=== PATIENT | male | born 1935 | race Caucasian/White ===

== ENCOUNTER → 2021-01-06 | Outpatient (CLI) | payer MEDICARE, BC ==
[~2021-01-06] MED LIST: IOHEXOL 180 MG/ML 10 ML VIAL. IJ ONE; LIDOCAINE 1% Multi-Dose 20 ML VIAL. INJ ONE
--- NOTE | 2021-01-06 12:03 | RAD ---
EXAM: Fluoroscopic guided lumbar puncture for lumbar myelography. HISTORY: 85-year-old male with back pain and lower extremity pain. TECHNIQUE: The risks of the procedure were discussed with the patient and written and verbal consent was obtained. A timeout was performed. The patient was premedicated for the exam due to a reported co ntrast allergy. The patient was placed in a prone position on the fluoroscopic table and fluoroscopic imaging was performed. Based on review of a prior lumbar spine CT and the presence of Baastrup's disease, the L2-L3 level wa s selected for needle entry. This site was prepped and draped in sterile fashion. 1% lidocaine solut ion without epinephrine was infiltrated into the skin and deep soft tissues along the expected needle track. A spinal needle could not be advanced beyond the posterior elements into the thecal sac despi te multiple attempts. Using the same sterile technique and local anesthesia, attempts were made at th e L3-L4 and L4-L5 levels. The L5-S1 level was not attempted due to prominent epidural fat effacing th e thecal sac at this level on the prior CT. 3 fluoroscopic images were obtained. The total fluoroscop y time was 4.2 minutes. Given inability to obtain access to the thecal sac at multiple levels, the my elogram portion of the exam was performed. Sterile bandages were placed at the needle entry sites and the patient was discharged in stable condition. IMPRESSION: Unsuccessful attempted fluoroscopic guided lumbar puncture for lumbar myelography. If the re is a contraindication to MRI assessment, a fluoroscopic guided cervical puncture can be attempted if deemed clinically indicated. This information was communicated to Rosario Pulido, the nurse for the referring surgeon, at 1000 on 01/06/2021. Electronically signed by: Theresa Marie MD (01/06/2021 12:01 PM) [id number]
== END | disposition home or self-care (01) ==
LOC: RAD 08:29
PROVIDERS: ATTEND Neurological Surgery
DX: M54.16 Radiculopathy, lumbar region (principal); Z88.0 Allergy status to penicillin; Z88.8 Allergy status to other drugs, medicaments and biological substances
CPT/HCPCS: 62304; J3490

== ENCOUNTER → 2021-02-18 | Outpatient (CLI) | payer MEDICARE, BC ==
[~2021-02-18] MED LIST changes: +ACET500T68 PO; +APIX5TAB PO; +BUSP15TA PO; +CHOL5000 PO; +CLON-77 PO; +CLONAZEPAM1 MG PO; +CYCL1DRO EACHEYE; +FLUT16SP NS; -IOHEXOL 180 MG/ML 10 ML VIAL. IJ ONE; +LEVO-101 PO; -LIDOCAINE 1% Multi-Dose 20 ML VIAL. INJ ONE; +MECL-75 PO; +METO-239 PO; +NITR0.4T24 SL; +PANT40TA77 PO; +PHEN300C4 PO; +PROP15DR EACHEYE; +SIMV20TA18 PO; +TAMS0.4C97 PO; +TRAM50TA PO; +VIT1CAPS12 PO; +XOPENEX0.63 MG/3 IH
[2021-02-18 13:14] LABS: BASO % 1 % (0-3); EOS # 0.1 x10^3/uL (0.0-0.7); EOS % 2 % (0-3); HEMATOCRIT 38.8 % (39.0-53.0); HEMOGLOBIN 13.4 g/dL (13.0-17.5); LYMPH # 2.3 x10^3/uL (1.0-4.8); LYMPH % 42 % (24-48); MEAN CORPUSCULAR HEMOGLOBIN 37 pg (25-35); MEAN CORPUSCULAR HGB CONC 35 g/dL (31-37); MEAN CORPUSCULAR VOLUME 106 fL (79-100); MONO # 0.5 x10^3/uL (0.0-1.1); MONO % 10 % (0-9); NEUT # 2.4 x10^3/uL (1.8-7.7); NEUT % 45 % (31-73); PLATELET COUNT 158 x10^3/uL (140-400); RED BLOOD COUNT 3.67 x10^6/uL (4.30-5.70); RED CELL DISTRIBUTION WIDTH 13.4 % (11.5-14.5); WHITE BLOOD COUNT 5.4 x10^3/uL (4.0-11.0)
[2021-02-18 13:31] LABS: ALBUMIN 3.3 g/dL (3.4-5.0); CALCIUM 8.9 mg/dL (8.5-10.1); CREATININE 1.1 mg/dL (0.7-1.3); GFR 63.8; POTASSIUM 4.5 mmol/L (3.5-5.1); TOTAL BILIRUBIN 0.4 mg/dL (0.2-1.0); TOTAL PROTEIN 6.7 g/dL (6.4-8.2)
== END ==
LOC: SURGPAT 12:40
PROVIDERS: ATTEND Neurological Surgery
DX: Z01.818 Encounter for other preprocedural examination (principal); M48.062 Spinal stenosis, lumbar region with neurogenic claudication
CPT/HCPCS: 36415; 80053; 85025; 87641

== ENCOUNTER → 2021-02-24 | Day surgery (SDC) | payer MEDICARE, BC ==
[2021-02-18 13:17] VITALS: BP 121/57
[~2021-02-24] VITALS: Ht 177.8 cm; Wt 91.0 kg
[~2021-02-24] MED LIST changes: +BUPIVACAINE-EPI 0.5%-1:200000 MPF 30 ML VIAL. ONE; +DEXAMETHASONE SOD PHOS 4 MG/ML VIAL ONE; +DOCU-109 PO; +GELATIN SPONGE SIZE 100. ONE; +GLYCOPYRROLATE 1 MG/5 ML VIAL. ONE; +HYDR-2761 PO; +HYDROmorphone 2 MG/ML VIAL IVP PRN; +IV RINGERS,LACTATED 1000ML 1,000 ML IV SCH; +KETOROLAC 60 MG/2 ML VIAL. ONE; +LIDOCAINE 1% PF 5 ML VIAL. ONE; +MORPHINE SULFATE 2 MG/ML INJ. IVP PRN; +NEOSTIGMINE 10 MG/10 ML VIAL. ONE; +ONDANSETRON PF 4 MG/2 ML VIAL. ONE; +PHENYLEPHRINE in 0.9% NACL PF 1 MG/10 ML SYRINGE. IV ONE; +PROCHLORPERAZINE 10 MG/2 ML VIAL. IVP PRN; +PROPOFOL 0 ML IV ONE; +PROPOFOL 10 MG/ML (20ML) VIAL. IV ONE; +REMIFENTANIL 1 MG VIAL. IV ONE; +ROCURONIUM 50 MG/5 ML VIAL. ONE; +SUCCINYLCHOLINE 200 MG/10 ML VIAL. ONE; +THROMBIN TOPICAL 20,000 UNIT SPRAY.SYRN KIT TP ONE; +ceFAZolin SODIUM 1 GM in IV NORMAL SALINE 1000ML BAG 1,000 ML IRR ONE; +ePHEDrine PF IN SALINE 50 MG/10 ML SYRINGE. IV ONE; +fentaNYL PF VIAL 100 MCG/2 ML VIAL IVP PRN; +fentaNYL PF VIAL 100 MCG/2 ML VIAL ONE
[2021-02-24 07:29] VITALS: BP 141/63
[2021-02-24 07:30] VITALS: BP 141/63
--- NOTE | 2021-02-24 08:00 | NUR ---
Surgery cancelled for 02/24. Chart sent to medical records for coding.
--- NOTE | 2021-02-24 09:40 | PREOP HP ---
DATE OF SERVICE: 02/25/2021 PREOP HISTORY AND PHYSICAL HISTORY OF PRESENT ILLNESS: The patient is a pleasant 85-year-old man who is having problems with low back pain along with bilateral buttock pain, right greater than left. There is also right posterior thigh and leg pain. He has had problems with urinary incontinence for years. He does have a known T12 fracture that occurred in 08/2020. He says his pain is 10/10 at its worse. Walking and standing markedly increase his pain. Lying down helps. He is taking tramadol and Tylenol. He had epidural steroid injections 10 years past for this problem without improvement. We did make arrangements for a lumbar myelogram; however, he was not able to have this. Because of his pacemaker, he cannot have a lumbar MRI scan. CURRENT MEDICATIONS: Flomax, Combivent, vitamin D3, BuSpar, clonazepam, meclizine, pantoprazole, thyroid, Eliquis, phenytoin, metoprolol, Tylenol, tramadol. PAST MEDICAL HISTORY: Angina, arthritis, seizures, headaches, COPD, [place], hypertension, thyroid disease, GERD. PAST SURGICAL HISTORY: Appendectomy, cholecystectomy, cardiac stents, cardiac pacemaker. FAMILY HISTORY: Aneurysm, cancer, seizures, heart disease, hypertension, headaches, spine problems. SOCIAL HISTORY: Retired, , does not smoke. Does not drink alcohol. ALLERGIES: PENICILLIN AND GEMIFLOXACIN. REVIEW OF SYSTEMS: A 12-point review of systems was performed and is noncontributory except that mentioned above PHYSICAL EXAMINATION: GENERAL: Alert, pleasant, in no acute distress. HEENT: Head is normocephalic, atraumatic. SKIN: Warm and dry. MUSCULOSKELETAL: Lumbar paraspinal muscle bulk is normal, restricted range of motion of the lumbar spine, [id number] tenderness of the lower lumbar spine with palpation, normal range of motion of the lower extremities bilaterally. EXTREMITIES: No clubbing, cyanosis or edema. NEUROLOGIC: Alert and oriented x 3. Strength is 5/5 in the lower extremities. Sensory was intact to light touch in the lower extremities bilaterally. Reflexes were present and symmetric in the lower extremities. Negative straight leg raising bilaterally, normal gait. IMAGING DATA: I reviewed the lumbar CT scan. On that study, he does appear to have significant stenosis at L3-L4. I cannot be sure about the other levels. ASSESSMENT AND PLAN: At this point, because of his marked disability and failure to improve with conservative measures, my recommendation is that he consider lumbar microsurgical decompression at L3-L4 bilaterally. Today, I did speak with him and his about this. We spoke about the technique, the risk and the expected postoperative course. We did discuss that it may not help him, but it does appear to be the area of stenosis seen on the CT scan, which is the best image that we can obtain. They understand, they would like to go ahead. JUAN/SHERIF DR: Kristin TID: [id number] [email or web address]
== END | disposition home or self-care (01) ==
LOC: SURG 06:40
PROVIDERS: ATTEND Neurological Surgery
DX: M54.5 Low back pain (principal); Z53.8 Procedure and treatment not carried out for other reasons; J44.9 Chronic obstructive pulmonary disease, unspecified; I25.2 Old myocardial infarction; I10 Essential (primary) hypertension; K21.9 Gastro-esophageal reflux disease without esophagitis; M19.90 Unspecified osteoarthritis, unspecified site; E78.00 Pure hypercholesterolemia, unspecified; F41.9 Anxiety disorder, unspecified; F32.9 Major depressive disorder, single episode, unspecified; G47.30 Sleep apnea, unspecified; Z90.49 Acquired absence of other specified parts of digestive tract; Z98.890 Other specified postprocedural states; Z85.828 Personal history of other malignant neoplasm of skin; Z79.899 Other long term (current) drug therapy; Z88.0 Allergy status to penicillin; Z88.8 Allergy status to other drugs, medicaments and biological substances
CPT/HCPCS: J0690; J2710; J3010; J3490; J7030; J0330; J1100; J1885; J2370; J2405; J2704

== ENCOUNTER 2021-02-25 06:59 | Day surgery (SDC) | payer MEDICARE, BC ==
[~2021-02-25] VITALS: Ht 177.8 cm; Wt 90.9 kg
[~2021-02-25 06:59] MED LIST changes: -DOCU-109 PO; -HYDR-2761 PO; -LIDOCAINE 1% PF 5 ML VIAL. ONE; -PHENYLEPHRINE in 0.9% NACL PF 1 MG/10 ML SYRINGE. IV ONE; -PROPOFOL 0 ML IV ONE; -PROPOFOL 10 MG/ML (20ML) VIAL. IV ONE; -REMIFENTANIL 1 MG VIAL. IV ONE; -ROCURONIUM 50 MG/5 ML VIAL. ONE; -SUCCINYLCHOLINE 200 MG/10 ML VIAL. ONE; -ePHEDrine PF IN SALINE 50 MG/10 ML SYRINGE. IV ONE; -fentaNYL PF VIAL 100 MCG/2 ML VIAL ONE
[2021-02-25] MEDS ORDERED: PHENYLEPHRINE in 0.9% NACL PF 1 MG/10 ML SYRINGE. IV ONE (07:01)
[2021-02-25] MEDS ORDERED: ROCURONIUM 50 MG/5 ML VIAL. ONE (07:02)
[2021-02-25] MEDS ORDERED: REMIFENTANIL 2 MG VIAL. IV ONE (07:06)
[2021-02-25] MEDS ORDERED: PROPOFOL 50 ML IV ONE (07:08)
[2021-02-25] MEDS ORDERED: LIDOCAINE 2% PF 5 ML VIAL. ONE (07:10)
[2021-02-25] MEDS ORDERED: fentaNYL PF VIAL 100 MCG/2 ML VIAL ONE (08:10)
[2021-02-25] MEDS ORDERED: VANCOMYCIN 1GM IVPB FOR OMNI 250 ML IV PRN (08:45)
[2021-02-25] MEDS ORDERED: PHENYLEPHRINE 10 MG/ML VIAL. ONE (09:13)
--- NOTE | 2021-02-25 09:32 | PREOP HP ---
DATE OF SERVICE: 02/25/2021 PREOP HISTORY AND PHYSICAL HISTORY OF PRESENT ILLNESS: The patient is a pleasant 85-year-old man who is having problems with low back pain along with bilateral buttock pain, right greater than left. There is also right posterior thigh and leg pain. He has had problems with urinary incontinence for years. He does have a known T12 fracture that occurred in 08/2020. He says his pain is 10/10 at its worse. Walking and standing markedly increase his pain. Lying down helps. He is taking tramadol and Tylenol. He had epidural steroid injections 10 years past for this problem without improvement. We did make arrangements for a lumbar myelogram; however, he was not able to have this. Because of his pacemaker, he cannot have a lumbar MRI scan. CURRENT MEDICATIONS: Flomax, Combivent, vitamin D3, BuSpar, clonazepam, meclizine, pantoprazole, thyroid, Eliquis, phenytoin, metoprolol, Tylenol, tramadol. PAST MEDICAL HISTORY: Angina, arthritis, seizures, headaches, COPD, [place], hypertension, thyroid disease, GERD. PAST SURGICAL HISTORY: Appendectomy, cholecystectomy, cardiac stents, cardiac pacemaker. FAMILY HISTORY: Aneurysm, cancer, seizures, heart disease, hypertension, headaches, spine problems. SOCIAL HISTORY: Retired, , does not smoke. Does not drink alcohol. ALLERGIES: PENICILLIN AND GEMIFLOXACIN. REVIEW OF SYSTEMS: A 12-point review of systems was performed and is noncontributory except that mentioned above PHYSICAL EXAMINATION: GENERAL: Alert, pleasant, in no acute distress. HEENT: Head is normocephalic, atraumatic. SKIN: Warm and dry. MUSCULOSKELETAL: Lumbar paraspinal muscle bulk is normal, restricted range of motion of the lumbar spine, [id number] tenderness of the lower lumbar spine with palpation, normal range of motion of the lower extremities bilaterally. EXTREMITIES: No clubbing, cyanosis or edema. NEUROLOGIC: Alert and oriented x 3. Strength is 5/5 in the lower extremities. Sensory was intact to light touch in the lower extremities bilaterally. Reflexes were present and symmetric in the lower extremities. Negative straight leg raising bilaterally, normal gait. IMAGING DATA: I reviewed the lumbar CT scan. On that study, he does appear to have significant stenosis at L3-L4. I cannot be sure about the other levels. ASSESSMENT AND PLAN: At this point, because of his marked disability and failure to improve with conservative measures, my recommendation is that he consider lumbar microsurgical decompression at L3-L4 bilaterally. Today, I did speak with him and his about this. We spoke about the technique, the risk and the expected postoperative course. We did discuss that it may not help him, but it does appear to be the area of stenosis seen on the CT scan, which is the best image that we can obtain. They understand, they would like to go ahead. JUAN/SHERIF DR: Kristin TID: [id number] [email or web address]
[2021-02-25] MEDS ORDERED: DESFLURANE > 120 MINUTES IH ONE (11:53)
[2021-02-25] MEDS ORDERED: HYDR-2761 PO (12:13)
[2021-02-25] MEDS ORDERED: DOCU-109 PO (12:13)
--- NOTE | 2021-02-25 12:21 | DISCH ---
DISCHARGE INSTRUCTIONS Condition on Discharge Condition on Discharge: Stable Activity After Discharge Activity Instructions for Disc: Activity as tolerated, Avoid exertion Other activity instructions: no driving for a week Bathing Instructions: Shower-keep dressing dry, No Tub Bath until see Lifting Instructions after Dis: No heavy lifting, No pulling or pushing, Do not lift >10 pounds Wound Incision Care Wound/Incision Care: Ice to area for comfort Other wound/incision instructi: may remove dressing in 48 hours if dry then may shower, no soaking Contacting the after DC Call your doctor for: Concerns you may have Follow-Up Follow up with: Dr. Rashid's nurse in 2 weeks [phone] PACO RASHID MD Feb 25, 2021 12:21
--- NOTE | 2021-02-25 12:23 | OP ---
DATE OF SURGERY: 02/25/2021 PREOPERATIVE DIAGNOSIS: Lumbar spinal stenosis, L3-L4. POSTOPERATIVE DIAGNOSIS: Lumbar spinal stenosis, L3-L4. OPERATION PERFORMED: Bilateral lumbar microdecompression at L3-L4. SURGEON: Eugene Zacarias M.D. DIRECTOR LEARNING SERVICES: KAIDEN Alonzo, who assisted with the exposure, the microdecompression bilaterally as well as the closure. The operation was done with EMG monitoring, SSEP monitoring, fluoroscopy, microscopic dissection. SPECIMEN: Decompression. OPERATIVE INDICATIONS: Jean-Pierre is a pleasant 85-year-old man who developed intractable back and bilateral leg pain, slightly worse on the right. On a CT scan, we were able to visualize significant stenosis at L3-L4 and I recommended lumbar microsurgery. I spoke with him about the surgery, the risks, technique and expected postoperative course, and he wished to go ahead. DESCRIPTION OF PROCEDURE: Following general endotracheal anesthesia, the patient was positioned prone on a Ezequiel table. Lumbar region was prepped and draped in standard fashion. CHRISTIANO hose and AV impulse boots were applied for DVT prophylaxis. The microscope was draped, fluoroscopy was draped and brought in the field. Monitoring established. Ancef 2 grams were given less than one hour prior to initiation of surgery. Using fluoroscopic guidance, a midline incision was made over the L3-L4 interspace. I dissected down through skin and subcutaneous tissue, reflected the paraspinal muscles to the left and placed a [place] microdisk retractor, brought in the microscope and the remainder of surgery was done with microscope using microscopic technique. I burred down a very generous hemilaminotomy. I grasped and peeled away the very thickened ligamentum flavum performing a partial foraminotomy and fully decompressed the entire region. I worked to the midline. I tilted the bed contralaterally and undercutting the edge. When this was completed, I obtained excellent hemostasis at this level. After removing the retractor and I switched to the contralateral side, I performed the identical operation on the right side. At the completion of this, I irrigated copiously with antibiotic solution. I did use a bipolar cautery for any bleeding in the muscle. I also used small amounts of bone wax where necessary. I irrigated copiously on this side after perfect hemostasis had been obtained and I closed the wound in layers with absorbable suture. The skin was closed with 4-0 subcuticular stitch. I felt the surgery went very well. POPPY DR: Nanda TID: [id number] [email or web address]
[2021-02-25] MEDS ORDERED: HYDROcodone/APAP 5/325MG 1 TAB TABLET PO ONE (13:15)
[2021-02-25 13:20] VITALS: BP 129/60
--- NOTE | 2021-03-01 17:07 | PATHOLOGY ---
[facility] Accession Number: [id number] . 01 Material submitted: . vertebral column - LUMBAR DECOMPRESSION . 01 Clinician provided ICD-10: [id number] . 01 Clinical history: . LUMBAR STENOSIS AND NEUROGENIC CLAUDICATION L3-4 BILATERAL LUMBAR MICRODECOMPRESSION . 02 Diagnosis: Segments of fibrocartilaginous, fibroadipose, and skeletal muscle tissue and bone, lumbar decompression: - Degenerative changes of fibrocartilaginous tissue. LBQ 03/01/2021 1457 Local . 02 Comment: There is no evidence of an acute inflammatory process or malignancy. (JPM/db; 03/01/2021) . 02 Electronically signed: . Yash Collins MD, Pathologist NPI- [id number] . 01 Gross description: . The specimen is received in formalin, labeled "Jean-Pierre Mo and lumbar decompression". It consists of multiple rodriguez irregular bony and soft tissue fragments measuring 4.5 x 4.[address] x 0[address]her sections are submitted in A1 following decalcification. (MRF; 02/28/2021) MFE/MFE 02/28/2021 1904 Local . 02 Pathologist provided ICD-10: M51.36 . 02 CPT . 167108, [id number] Specimen Comment: A courtesy copy of this report has been sent to [phone], [phone] Specimen Comment: [id number] Specimen Comment: Report sent to / DR ROSE Specimen Comment: A duplicate report has been generated due to demographic updates. Performed at: [address], [place], [place] [id number] MD Hubert Bolaños MD Phone: [phone] Performed at: 02 [facility] [address] [place], [place] [id number] MD Yash Collins MD Phone: [phone]
== END 2021-02-25 14:35 | disposition home or self-care (01) ==
LOC: SURG 06:59
PROVIDERS: ATTEND Neurological Surgery
DX: M48.062 Spinal stenosis, lumbar region with neurogenic claudication (principal); I25.10 Atherosclerotic heart disease of native coronary artery without angina pectoris; I10 Essential (primary) hypertension; E78.00 Pure hypercholesterolemia, unspecified; I48.91 Unspecified atrial fibrillation; J44.9 Chronic obstructive pulmonary disease, unspecified; G47.30 Sleep apnea, unspecified; K21.9 Gastro-esophageal reflux disease without esophagitis; M19.90 Unspecified osteoarthritis, unspecified site; E03.9 Hypothyroidism, unspecified; F41.9 Anxiety disorder, unspecified; F32.9 Major depressive disorder, single episode, unspecified; Z90.49 Acquired absence of other specified parts of digestive tract; Z98.890 Other specified postprocedural states; Z79.899 Other long term (current) drug therapy; Z88.0 Allergy status to penicillin; Z88.8 Allergy status to other drugs, medicaments and biological substances
CPT/HCPCS: 63047; 97116; 97162; 97530; A4213; A4364; A4930; A6254; A6258; J0690; J1100; J1885; J2370; J2405; J2704; J2710; J3010; J3490; J7030; 76000; A4222; A4657